=== PATIENT | male | born 1930 | race Caucasian/White ===

== ENCOUNTER 2017-10-27 06:10 | Day surgery (SDC) | payer OTHER ==
[2017-10-27] MEDS ORDERED: LIDOCAINE 1% MDV 20ML VIAL SQ (06:30)
[2017-10-27] MEDS ORDERED: ROCURONIUM BROMIDE 50 MG/5 ML VIAL As Ordered (06:57)
[2017-10-27] MEDS ORDERED: KETOROLAC 60 MG/2 ML VIAL (J1885) As Ordered (06:57)
[2017-10-27] MEDS ORDERED: PROPOFOL 200 MG/20 ML VIAL As Ordered (06:57)
[2017-10-27] MEDS ORDERED: LIDOCAINE 2% INJ 100 MG/5 ML SDV (FOR ANES.) As Ordered (06:57)
[2017-10-27] MEDS ORDERED: dexameTHASONE 4 MG/ML 1ML VIAL (J1100) As Ordered (06:57)
[2017-10-27] MEDS ORDERED: ONDANSETRON 4MG/2ML VIAL (J2405) As Ordered (06:57)
[2017-10-27] MEDS ORDERED: fentaNYL 100 MCG/2 ML INJECTION (J3010) As Ordered (06:58)
[2017-10-27] MEDS ORDERED: MIDAZOLAM INJ 2 MG/2 ML VIAL (J2250) As Ordered (06:58)
[2017-10-27] MEDS: LR 1,000 ML IV (07:05)
[2017-10-27] MEDS ORDERED: PROPOFOL 500 MG/50 ML VIAL As Ordered (07:18)
[2017-10-27] MEDS ORDERED: HumaLOG INSULIN (NovoLOG) PER UNIT As Ordered (07:26)
[2017-10-27] MEDS: HumuLIN R (REGULAR) INSULIN (NovoLIN R) **100U/ML** PER UNIT SC (07:26)
[2017-10-27] MEDS: dexameTHASONE 4 MG/ML 1ML VIAL (J1100) IV ×2 (07:30→07:53)
[2017-10-27 07:40] LABS: BEDSIDE GLUCOSE 242 MG/DL (83-110)
[2017-10-27] MEDS: ceFAZolin SOD 1 GM in D5W MINI-BAG PLUS 50 ML IV (07:53)
[2017-10-27] MEDS: LIDOCAINE W/EPINEPHRINE 1% 20ML VIAL As Ordered (08:47)
[2017-10-27] MEDS: BACITRACIN OINT 30GM As Ordered (08:47)
[2017-10-27] MEDS ORDERED: PHENYLephrine HCL 500 MCG/5 ML (100MCG/ML) SYRINGE (J2370) As Ordered (08:56)
[2017-10-27] MEDS ORDERED: fentaNYL 100 MCG/2 ML INJECTION (J3010) IV (09:30)
[2017-10-27] MEDS ORDERED: ONDANSETRON 4MG/2ML VIAL (J2405) IV (09:30)
[2017-10-27] MEDS ORDERED: ACETAMINOPHEN TAB 650MG DOSE (2X325MG) PO (09:30)
== END 2017-10-27 10:45 | disposition home or self-care (01) ==
LOC: M SDC 06:10
DX: C44.219 Basal cell carcinoma of skin of left ear and external auricular canal (principal); E11.9 Type 2 diabetes mellitus without complications; I10 Essential (primary) hypertension; Z79.899 Other long term (current) drug therapy; E03.9 Hypothyroidism, unspecified; Z95.2 Presence of prosthetic heart valve; Z95.0 Presence of cardiac pacemaker
CPT/HCPCS: 11641

== ENCOUNTER → 2018-09-07 | Outpatient (CLI) | payer MEDICARE ==
[~2018-09-07] MED LIST: /BACIOPOI; /TAMS4CA; ACTO30TA; ASPI81TA63; CARV6.25 PO; FAMO40TA3 PO; FURO80TA2 PO; GLIP2.5T6 PO; HYDR25TA6; JANU100T PO; LEVO25TA5 PO; LISI20TA5; MELOPOW; METF500T4; PRAV20TA2 PO; SIMV20TA2; SOMA250T; STARLIX; SUCR1TAB56 PO; ZOCO20TA
--- NOTE | 2018-09-11 10:38 | RADONC ---
RADIATION ONCOLOGY CONSULTATION NOTE DATE: 09/07/2018 CHART NUMBER: [id number] DIAGNOSIS: Basal cell carcinoma of left ear. ECOG PERFORMANCE STATUS: 0 CONSULTATION NOTE: Mr. 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 HISTORY OF PRESENT ILLNESS: The patient reports that he has had a lesion in this area going back approximately a year or so. On 10/27/2017, he underwent an excision of this area which included the skin of the left preauricular region as well as left pre tragal area. Pathology revealed an ulcerated basal cell carcinoma with positive margins. At that time, considering the patient's advanced age, no further therapy was given but the lesion continued to recur and progress causing him now some difficulties. He is now presenting to us for consideration of external beam radiation therapy. PAST MEDICAL HISTORY: The patient's past medical history is positive for a pacemaker done 2 years ago. 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 He had bilateral carpal tunnel surgery and has had two toes amputated. 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 ALLERGIES: The patient has NO KNOWN DRUG ALLERGIES. SOCIAL HISTORY: The patient does not smoke cigarettes nor abuse alcohol. FAMILY HISTORY: The patient's family history is negative for skin cancers or other malignancies. REVIEW OF SYSTEMS: The patient's review of systems is positive for some balance issues as well as loss of vision in his left eye, but is otherwise noncontributory. The patient's review of systems is noncontributory. Denies nausea, vomiting, fevers, chills, night sweats, diplopia, headaches, anxiety or depression, anorexia, weight loss, visual disturbances, chest pain, urinary or bowel difficulties, bone pain, or neurological problems. PHYSICAL EXAMINATION: The patient is a well-developed, well-nourished, elderly white male, in no acute distress. HEENT: Exam is normocephalic, atraumatic. The patients extraocular movements of his right eye are within normal limits. His left eye is outward looking. The cavity examination fails to reveal any lesions or nodularity. There is a 2 cm or so scabbed over area in the anterior aspect of the patient's left ear and preauricular region. This is consistent with his above history. There is no palpable preauricular, cervical, supraclavicular, infraclavicular lymphadenopathy present. ASSESSMENT: I do believe the patient is a candidate for external beam radiation therapy and I have so informed him. I have discussed with the patient in detail the potential benefits as well as possible acute and chronic sequelae of external beam radiation therapy. We have discussed logistics of treatment planning, simulation and subsequent fractionated daily radiation treatments. I have scheduled the patient for the next available simulation slot and radiation treatments will begin subsequently. Thank you for allowing us to participate in the care of this very pleasant gentleman. If I can be of any further assistance, please free to contact me at anytime. As always, warm regards. cc: MD Riddhi Sharma MD Kenneth Fish, MD
== END ==
LOC: M ONCR 08:41
PROVIDERS: ATTEND Radiology Radiation Oncology
DX: C44.219 Basal cell carcinoma of skin of left ear and external auricular canal (principal)

== ENCOUNTER → 2018-10-24 | Outpatient (RCR) | payer MEDICARE ==
--- NOTE | 2018-09-26 14:49 | RADONC ---
RADIATION ONCOLOGY PROGRESS NOTE DATE: 09/25/2018 CHART NUMBER: [id number] Mr. Monae is presently at a dose of 1000 cGy to his basal cell carcinoma of the left ear and is tolerating treatments quite well at this point with no complaints related to his radiation therapy. He is having no skin discomfort or other problems. REVIEW OF SYSTEMS: The patient's review of systems is noncontributory. He denies nausea, vomiting, fevers, chills, night sweats, diplopia, headaches, anxiety or depression, anorexia, weight loss, visual disturbances, chest pain, urinary or bowel difficulties, bone pain or neurological problems. PHYSICAL EXAMINATION: The patient's skin is in good condition with no evidence of moist or dry desquamation. The remainder of his physical exam remains unchanged. Mr. Monae is tolerating treatments quite well and radiation will continue as scheduled.
--- NOTE | 2018-10-02 08:57 | RADONC ---
RADIATION ONCOLOGY PROGRESS NOTE DATE OF SERVICE: 10/02/2018 CHART #: [id number] Mr. Monae is presently at a dose of 1800 cGy to his left preauricular area and is tolerating treatments quite well at this point with no complaints related to his radiation therapy. He is having no skin pain, ear pain or other problems. REVIEW OF SYSTEMS: The patient's review of systems is noncontributory. Denies nausea, vomiting, fevers, chills, night sweats, diplopia, headaches, anxiety or depression, anorexia, weight loss, visual disturbances, chest pain, urinary or bowel difficulties, bone pain, or neurological problems. PHYSICAL EXAMINATION: The patient's skin is in good condition with no evidence of moist or dry desquamation. The remainder of his physical exam remains unchanged. Mr. Monae is tolerating treatments quite well and radiation will continue as scheduled.
--- NOTE | 2018-10-09 10:01 | RADONC ---
RADIATION ONCOLOGY PROGRESS NOTE DATE: 10/09/2018 CHART NUMBER: [id number] PROGRESS NOTE: Mr. Monae with a diagnosis of basal cell carcinoma in the left preauricular area is currently receiving radiotherapy and is at a dose of 2600 cGy of an anticipated 6000 cGy utilizing a 9 MeV electron beam. Thus far treatments are going relatively well. REVIEW OF SYSTEMS: He denies any nausea, vomiting, significant skin irritation and does note a significant improvement in the overall mass lesion noted in the left preauricular area. He continues to deny any alteration in his taste or significant pain or other physical manifestations of the treatment. EXAMINATION FINDINGS: The skin within the irradiated volume shows a brisk erythematous blush as anticipated with no palpable peripheral lymphadenopathy. In the ulcerative tumor area, which represented the tumor, there is some evidence of desquamation and re-epithelialization. The remainder of the physical examination is unchanged. IMPRESSION: Tolerating therapy well with improvement of the overall physical dimensions of the tumor grossly. PLAN: Treatments to continue. MTDD
--- NOTE | 2018-10-17 16:27 | RADONC ---
RADIATION ONCOLOGY PROGRESS NOTE DATE: 10/17/2018 CHART NUMBER: [id number] PROGRESS NOTE: Mr. Monae is presently a dose of 3800 cGy to his left ear and is tolerating treatments quite well at this point with no complaints related to his radiation therapy. He is having no ear discomfort or other problems. REVIEW OF SYSTEMS: The patient's review of systems is noncontributory. Denies nausea, vomiting, fevers, chills, night sweats, diplopia, headaches, anxiety or depression, anorexia, weight loss, visual disturbances, chest pain, urinary or bowel difficulties, bone pain, or neurological problems. PHYSICAL EXAMINATION: The patient's skin shows erythema and tanning present but no evidence of moist or dry desquamation. The remainder of his physical exam remains unchanged. Mr. Monae is tolerating treatments quite well and radiation will continue as scheduled.
[~2018-10-24] MED LIST changes: -/TAMS4CA; +FLOM0.4C39
--- NOTE | 2018-10-25 07:11 | RADONC ---
RADIATION ONCOLOGY PROGRESS NOTE DATE: 10/23/2018 CHART NUMBER: [id number] Mr. Monae is presently a dose of 4600 cGy to his left preauricular area and ear and is tolerating treatments quite well at this point with just some mild discomfort of the skin. REVIEW OF SYSTEMS: The patient's review of systems is positive for some skin discomfort but is otherwise noncontributory. He denies nausea, vomiting, fevers, chills, night sweats, diplopia, headaches, anxiety or depression, anorexia, weight loss, visual disturbances, chest pain, urinary or bowel difficulties, bone pain or neurological problems. PHYSICAL EXAMINATION The patient's skin shows erythema and tanning present, but overall is in generally good condition with no evidence of moist or dry desquamation. The remainder of his physical exam remains unchanged. Mr. Monae is tolerating treatments quite well and radiation will continue as scheduled.
== END ==
LOC: M ONCR 09-25 08:10
PROVIDERS: ATTEND Radiology Radiation Oncology
DX: C44.219 Basal cell carcinoma of skin of left ear and external auricular canal (principal)

== ENCOUNTER 2018-11-01 07:52 | Outpatient (RCR) | payer MEDICARE ==
--- NOTE | 2018-10-30 10:49 | RADONC ---
RADIATION ONCOLOGY PROGRESS NOTE DATE: 10/30/2018 CHART NUMBER: [id number] PROGRESS NOTE: Mr. Monae is presently at a dose of 5600 to his left ear and is tolerating treatments quite well at this point with no complaints related to his radiation therapy other than some itching of the skin in the ear canal. REVIEW OF SYSTEMS: The patient's review of systems is noncontributory other than for physical limitations secondary to his age. Denies nausea, vomiting, fevers, chills, night sweats, diplopia, headaches, anxiety or depression, anorexia, weight loss, visual disturbances, chest pain, urinary or bowel difficulties, bone pain, or neurological problems. PHYSICAL EXAMINATION: The patient's skin is in good condition with some dry desquamation but no evidence of moist desquamation. There is tanning present as well. The remainder of his physical exam remains unchanged. Mr. Monae is tolerating treatments quite well and radiation will continue as scheduled.
--- NOTE | 2018-11-02 09:17 | RADONC ---
RADIATION ONCOLOGY TREATMENT SUMMARY DATE: 11/01/2018 CHART #: [id number] DIAGNOSIS: Basal cell carcinoma of left ear. ECOG PERFORMANCE STATUS: 0. TREATMENT SUMMARY: Mr. 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 We treated the patient to the skin of this region for a total dose of 6000 cGy delivered in 30 fractions of 200 cGy each over 43 elapsed days from 09/19/2018 through 11/01/2018. The patient's skin was treated on the linear accelerator utilizing a 9 MEV electron beam prescribed to the 90% isodose line via non phos technique. 1/2 cm of tissue equivalent bolus was placed over the field. Mr. Monae tolerated his treatments quite well with no significant difficulties related to his radiation therapy. The patient is scheduled to see me again in 1 month for further followup. He will also continue to be followed by his other physicians as well. Thank you for allowing us to participate in the care of this very pleasant gentleman. If I could be of any further assistance, please free to contact me at anytime. As always warm regards. cc: MD Derek Sharma MD Kenneth Fish, MD
== END 2018-11-24 ==
LOC: M ONCR 07:52
PROVIDERS: ATTEND Radiology Radiation Oncology
DX: C44.219 Basal cell carcinoma of skin of left ear and external auricular canal (principal)

== ENCOUNTER 2019-03-06 10:30 | Day surgery (SDC) | payer MEDICARE ==
[~2019-03-06] VITALS: Ht 167.6 cm; Wt 64.0 kg
[~2019-03-06 10:30] MED LIST changes: +D3 S20002 PO; +HM V5000 PO; +HYDR12CA PO; +METF500T13 PO; +MM S100C PO; +POTA1TAB14 PO; +XARE15TA PO; +[UNRECOGNIZED DRUG - OTHER] PA; +dexameTHASONE 4 MG/ML 1ML VIAL (J1100) IV ONE
[2019-03-06] MEDS ORDERED: FERR325T3 PO (11:47)
[2019-03-06] MEDS ORDERED: LOVE1INJ SC (11:47)
[2019-03-06] MEDS ORDERED: PROPOFOL 200 MG/20 ML VIAL As Ordered ONE (12:42)
[2019-03-06] MEDS ORDERED: LIDOCAINE 2% INJ 100 MG/5 ML SDV (FOR ANES.) As Ordered ONE (12:42)
[2019-03-06] MEDS ORDERED: fentaNYL 100 MCG/2 ML INJECTION (J3010) As Ordered ONE (12:42)
[2019-03-06] MEDS ORDERED: ONDANSETRON 4MG/2ML VIAL (J2405) As Ordered ONE (12:43)
[2019-03-06] MEDS ORDERED: BACITRACIN OINT 30GM As Ordered ONE (14:08)
[2019-03-06] MEDS ORDERED: LIDOCAINE W/EPINEPHRINE 1% 20ML VIAL As Ordered ONE (14:09)
[2019-03-06] MEDS ORDERED: dexameTHASONE 4 MG/ML 1ML VIAL (J1100) As Ordered ONE ×2 (14:26→14:27)
[2019-03-06 16:20] VITALS: BP 102/59
--- NOTE | 2019-03-12 21:09 | RO ---
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 PROCEDURE PERFORMED: Excision of the right cutaneous squamous cell carcinoma of the right evangelical. Total area excised 2.8 x 2 cm. ANESTHESIA: Local sedation. SURGEON: Dr. Derek Ruiz CLINICAL PREAMBLE: This 88-year-old man had a biopsy done over the lesion located at the right temporal area and it was found to be squamous cell carcinoma. Management options include excision of the cutaneous squamous cell carcinoma over the right evangelical have been discussed. Patient understood and consented to the procedure. Patient was identified in the preholding of the right temporal jose cruz. He was brought to the operating room. In supine position on the operating room table, the patient received local sedation and it was administered by anesthesiology team. The patient was prepped and draped in the usual fashion for the procedure. The cutaneous lesion over the right evangelical was then outlined to include the margin. It measured 2.8 x 2 cm. The excision was then successful performed. It was sent for frozen section. Margins were noted to be negative. Area excised measured 2.8 x 2 cm. The surgical site was then closed in two layers using 4-0 Vicryl for deep layer and 3-0 prolene for final closure of the skin. Bacitracin was applied over the surgical site. At the end of the procedure sponge and instrument counts were correct. COMPLICATIONS: None. ESTIMATED BLOOD LOSS: Less than 5 mL. Local sedation was reversed and patient was taken to the recovery room in stable condition.
== END 2019-03-06 16:30 | disposition home or self-care (01) ==
LOC: M SDC 10:30
PROVIDERS: ATTEND Otolaryngology
DX: C44.329 Squamous cell carcinoma of skin of other parts of face (principal); E11.9 Type 2 diabetes mellitus without complications; D64.9 Anemia, unspecified; Z92.3 Personal history of irradiation; Z79.899 Other long term (current) drug therapy; Z79.84 Long term (current) use of oral hypoglycemic drugs; Z79.01 Long term (current) use of anticoagulants; I34.0 Nonrheumatic mitral (valve) insufficiency; Z95.0 Presence of cardiac pacemaker
CPT/HCPCS: 11643; 12052; 88305; 88331; J1100; J2405; J3010